=== PATIENT | female | born 1985 | race Caucasian/White ===

== ENCOUNTER 2017-10-28 09:47 | Outpatient (CLI) | payer MEDICAID ==
[2017-10-28] MEDS: LACTATED RINGER'S 1,000 ML IV (10:06)
[2017-10-28] MEDS: TERBUTALINE 1 MG/ML INJ SC (10:06)
[2017-10-28 11:17] LABS: URINE BLOOD (Dip) POC Negative (NEGATIVE); URINE GLUCOSE (Dip) POC Negative (NEGATIVE); URINE KETONES (Dip) POC Negative (NEGATIVE); URINE LEUKOCYTE EST (Dip) POC Negative (NEGATIVE); URINE NITRITE (Dip) POC Negative (NEGATIVE); URINE TOTAL PROTEIN POC Negative (NEGATIVE)
== END 2017-10-28 11:59 | disposition home or self-care (01) ==
LOC: OBT 09:47 → L-D 09:48 → OBT 11:59
DX: O62.9 Abnormality of forces of labor, unspecified (principal); Z3A.33 33 weeks gestation of pregnancy
CPT/HCPCS: 76817; 76818; 81003; 96360; 96361

== ENCOUNTER 2017-11-04 09:49 | Outpatient (CLI) | payer MEDICAID ==
[2017-11-04] MEDS: LACTATED RINGER'S 1,000 ML IV* (10:14)
[2017-11-04] MEDS: TERBUTALINE 1 MG/ML INJ SC ×2 (10:22→13:13)
== END 2017-11-04 14:22 | disposition home or self-care (01) ==
LOC: OBT 09:49 → L-D 09:49 → OBT 14:22
DX: O28.1 Abnormal biochemical finding on antenatal screening of mother (principal); Z3A.34 34 weeks gestation of pregnancy
CPT/HCPCS: 36415; 76817; 96360; 96361; 96372

== ENCOUNTER 2017-12-04 09:46 | Inpatient (IN) | payer MEDICAID ==
[2017-12-04 10:23] LABS: ADD MAN DIFF? NO
[2017-12-04] MEDS: LACTATED RINGER'S 1,000 ML IV ×2 (10:29→18:06)
[2017-12-04] MEDS ORDERED: CEFAZOLIN 2 GM/50 ML (PMX) 50 ML IV (10:30)
[2017-12-04] MEDS ORDERED: MISOPROSTOL 200 MCG TAB PR ×2 (10:30→18:30)
[2017-12-04] MEDS ORDERED: METHYLERGONOVINE 0.2 MG INJ IM ×2 (10:30→18:30)
[2017-12-04] MEDS ORDERED: CARBOPROST 250 MCG INJ IM ×2 (10:30→18:30)
[2017-12-04] MEDS ORDERED: OXYTOCIN 30 UNITS/LR 500 ML IV ×2 (10:30→18:30)
[2017-12-04 10:46] LABS: WHITE BLOOD COUNT 8.1 10^3/ul (4.8-10.8)
[2017-12-04 10:46] LABS: BASOPHILS % 0.5 % (0.0-2.0); EOSINOPHILS % 0.2 % (0.0-7.0); HEMATOCRIT 38.7 % (37.0-47.0); HEMOGLOBIN 13.1 g/dl (12.0-16.0); LYMPHOCYTES # 1.9 10^3/ul (0.8-2.9); LYMPHOCYTES % 22.9 % (15.0-51.0); MEAN CORPUSCULAR HEMOGLOBIN 33.4 pg (29.0-33.0); MEAN CORPUSCULAR HGB CONC 33.9 g/dl (32.0-37.0); MEAN CORPUSCULAR VOLUME 98.7 fl (82.0-101.0); MEAN PLATELET VOLUME 12.2 fl (7.4-10.4); MONOCYTE # 0.7 10^3/ul (0.3-0.9); MONOCYTES % 8.4 % (0.0-11.0); NEUTROPHIL # 5.3 10^3/ul (1.6-7.5); NEUTROPHILS % 65.3 % (39.0-77.0); PLATELET COUNT 162 10^3/UL (140-415); RED BLOOD COUNT 3.92 10^6/ul (4.20-5.40); RED CELL DISTRIBUTION WIDTH 13.5 % (11.5-14.5)
[2017-12-04 10:59] LABS: PROTIME 12.2 Sec (11.9-14.9)
[2017-12-04 11:00] LABS: PARTIAL THROMBOPLASTIN TIME 27.6 Sec (25.0-35.0)
[2017-12-04] MEDS: FAMOTIDINE 20 MG INJ IV (12:33)
[2017-12-04] MEDS: ONDANSETRON 4 MG INJ IV (12:33)
[2017-12-04] MEDS: METOCLOPRAMIDE 10 MG INJ IV (12:33)
[2017-12-04 12:51] LABS: HEPATITIS B SURFACE ANTIGEN NEGATIVE (NEGATIVE)
[2017-12-04] MEDS ORDERED: morphine SULFATE/PF (10 MG/10 ML) INJ (12:52)
[2017-12-04] MEDS ORDERED: BUPIVACAINE 0.75%/DEXT (SPINAL) 2 ML INJ (12:58)
[2017-12-04] MEDS ORDERED: OXYTOCIN 10 UNIT INJ (13:06)
[2017-12-04] MEDS ORDERED: TRIMETHOBENZAMIDE 100 MG/ML VIAL IM (14:30)
[2017-12-04] MEDS ORDERED: DIPHENHYDRAMINE 50 MG INJ IV ×2 (14:30)
[2017-12-04] MEDS ORDERED: ZOLPIDEM 5 MG TAB PO (14:30)
[2017-12-04] MEDS ORDERED: NALBUPHINE HCL (10 MG/1 ML) INJ IV (14:30)
[2017-12-04] MEDS ORDERED: FENTAnyl 50 MCG/ML VIAL IV ×2 (14:30)
[2017-12-04] MEDS ORDERED: ONDANSETRON 4 MG INJ IV ×2 (14:30)
[2017-12-04] MEDS ORDERED: NALOXONE (0.4 MG/ML) INJ IV (14:30)
[2017-12-04] MEDS ORDERED: HYDROmorphONE 0.5 MG/0.5 ML SYG IV ×2 (14:30)
[2017-12-04] MEDS ORDERED: HYDROmorphONE (0.2 MG/ML) 10ML SYG IV ×3 (14:30)
[2017-12-04] MEDS ORDERED: morphine 2 MG INJ IV ×2 (14:30)
[2017-12-04] MEDS: OXYTOCIN 30 UNITS/LR 500 ML IV ×4 (14:45→22:11)
[2017-12-04] MEDS: KETOROLAC 30 MG INJ IV ×3 (14:56→15:47)
[2017-12-04] MEDS ORDERED: HYDROCODONE/APAP (5/325) TAB PO (18:30)
[2017-12-04] MEDS ORDERED: LANOLIN 7 GM TUBE TOP (18:30)
[2017-12-04] MEDS ORDERED: OXYCODONE/ACETAMINOPHEN (5/325) TAB PO (18:30)
[2017-12-04] MEDS: SENNA/DOCUSATE NA (8.6MG/50MG) TAB PO (21:24)
[2017-12-04] MEDS: CEFAZOLIN 1 GM/50 ML (PMX) 50 ML IVPB (21:25)
[2017-12-04 21:31] LABS: RAPID PLASMA REAGIN NONREACTIVE (NR)
[2017-12-05] MEDS: LACTATED RINGER'S 1,000 ML IV ×3 (00:16→18:06)
[2017-12-05] MEDS: OXYTOCIN 30 UNITS/LR 500 ML IV ×4 (02:11→14:11)
[2017-12-05] MEDS: KETOROLAC 30 MG INJ IV ×4 (05:29→13:43)
[2017-12-05] MEDS: SENNA/DOCUSATE NA (8.6MG/50MG) TAB PO ×2 (08:16→20:44)
[2017-12-05 11:25] LABS: ADD MAN DIFF? NO
[2017-12-05 11:33] LABS: WHITE BLOOD COUNT 9.3 10^3/ul (4.8-10.8)
[2017-12-05 11:33] LABS: BASOPHILS % 0.3 % (0.0-2.0); EOSINOPHILS % 0.3 % (0.0-7.0); HEMATOCRIT 31.9 % (37.0-47.0); HEMOGLOBIN 10.6 g/dl (12.0-16.0); LYMPHOCYTES # 1.2 10^3/ul (0.8-2.9); LYMPHOCYTES % 12.9 % (15.0-51.0); MEAN CORPUSCULAR HGB CONC 33.2 g/dl (32.0-37.0); MEAN CORPUSCULAR VOLUME 99.4 fl (82.0-101.0); MEAN PLATELET VOLUME 11.7 fl (7.4-10.4); MONOCYTE # 0.6 10^3/ul (0.3-0.9); MONOCYTES % 5.9 % (0.0-11.0); NEUTROPHIL # 7.4 10^3/ul (1.6-7.5); PLATELET COUNT 135 10^3/UL (140-415); RED BLOOD COUNT 3.21 10^6/ul (4.20-5.40); RED CELL DISTRIBUTION WIDTH 13.2 % (11.5-14.5)
[2017-12-05] MEDS: HYDROCODONE/APAP (5/325) TAB PO ×2 (16:08→20:46)
[2017-12-05] MEDS: IBUPROFEN 600 MG TAB PO ×2 (18:00→23:30)
[2017-12-06] MEDS: OXYCODONE/ACETAMINOPHEN (5/325) TAB PO ×3 (01:56→20:11)
[2017-12-06] MEDS: IBUPROFEN 600 MG TAB PO ×4 (05:31→23:39)
[2017-12-06] MEDS: HYDROCODONE/APAP (5/325) TAB PO (06:33)
[2017-12-06] MEDS: SENNA/DOCUSATE NA (8.6MG/50MG) TAB PO ×2 (09:41→20:10)
[2017-12-06] MEDS: NA PHOSPHATE/BIPHOS 133 ML ENEMA PR (09:42)
[2017-12-07] MEDS: OXYCODONE/ACETAMINOPHEN (5/325) TAB PO (01:34)
[2017-12-07] MEDS: IBUPROFEN 600 MG TAB PO ×2 (05:43→11:34)
[2017-12-07] MEDS: DIPHTH/TET/ACEL PERTUSS (ADULT) 0.5 ML VIAL IM* (09:00)
[2017-12-07] MEDS: SENNA/DOCUSATE NA (8.6MG/50MG) TAB PO (09:17)
== END 2017-12-07 13:38 | disposition home or self-care (01) | DRG 766 ==
LOC: L-D 09:46 → PP1 16:53
PROVIDERS: Obstetrics & Gynecology
PROC: 10D00Z1 Extraction of Products of Conception, Low, Open Approach (ICD-10-PCS; principal; 2017-12-04 12:30)
PROC: 0UL70ZZ Occlusion of Bilateral Fallopian Tubes, Open Approach (ICD-10-PCS; 2017-12-04 12:30)
PROC: 3E033VJ Introduction of Other Hormone into Peripheral Vein, Percutaneous Approach (ICD-10-PCS; 2017-12-04 12:30)
DX: O34.211 Maternal care for low transverse scar from previous cesarean delivery (principal); Z30.2 Encounter for sterilization; Z3A.39 39 weeks gestation of pregnancy; Z37.0 Single live birth
CPT/HCPCS: 85025; 85610; 85730; 86592; 86850; 86900; 86901; 87340; 88302; 94760; 99464